=== PATIENT | male | born 1950 | race African-American/Black ===

== ENCOUNTER 2016-04-12 10:57 | Outpatient (CLI) | payer BC ==
[~2016-04-12] VITALS: Ht 160 cm; Wt 122.7 kg
--- NOTE | ~2016-04-12 | HEMODYNAMI ---
PATIENT:KAMLA GUTIERREZ JR MEDICAL RECORD: [id number] : 50 LOCATION:[facility] ADMISSION DATE: 04/12/16 Generatedon:04/12/201614:01 Patient name: KAMLA GUTIERREZ Patient #: [id number] : 1950 Date of study: 04/12/2016 Page: Of Hemodynamic Procedure Report Patient Data Patient Demographics Procedure consent was obtained First Name: KAMLA Gender: Male Last Name: BRENDA Suffix: Patient #: [id number] : 1950 Age: 65 year(s) SSN: [id number] Race: Black Additional ID: [id number] Contact details Address: [address] [place] [address] street State: [place] City: [place] Zip code: [address] Past Medical History Allergies: No known allergies Admission Admission Data Admission Date: 04/12/2016 Admission Time: 10:57 Arrival Date: 04/12/2016 Arrival Time: 0:00 Admit Source: Other Insurance Payor: Private health insurance Height (in.): 61 BSA: 2.15 (m2) Height (cm.): 154.94 BMI: 51.39 (kg/m2) Weight (lbs.): 272 Weight (kg.): 123.38 Lab Results Lab Result Date: 04/12/2016 Lab Result Time: 0:00 Biochemistry Name Units Result Min Max BUN mg/dl 15 --(--*-)-- 7 18 Creatinine mg/dl 1.1 --(--*-)-- 0.6 1.3 CBC Name Units Result Min Max Hemoglobin g/dl 13.6 --(*---)-- 13.5 17.5 Procedure Procedure Types Cath Procedure Diagnostic Procedure [facility] w/Coronaries PCI Procedure Coronary Stent Initial Procedure Description Procedure Date Procedure Date: 04/12/2016 Procedure Start Time: 13:28 Procedure End Time: 13:58 Procedure Staff Name Function Abdi Salinas MD Performing Physician Beth Gutiérrez RN Nurse Deepali Foy RT Monitor Antonio Emery RN Utility Manager Baldev Weir RT Scrub Procedure Data Cath Procedure Fluoroscopy Diagnostic fluoroscopy Total fluoroscopy Time: 8.1 time: 8.1 min min Diagnostic fluoroscopy Total fluoroscopy dose: dose: 1696 mGy 1696 mGy Contrast Material Contrast Material Type Amount (ml) Isovue 300 117 Entry Location Entry Primary Successful Side Size Upsize Upsize Entry Closure Alexandre ccessful Closure Location (Fr) 1 (Fr) 2 (Fr) Remarks Device Remarks Radial Right 6 Fr Mechanical TR band artery Short Compression Estimated blood loss: 10 ml Diagnostic catheters Device Type Used For End Catheter Placement Terumo 5Fr Rylan 110cm Procedure catheter Procedure Complications No complications Procedure Medications Medication Administration Route Dosage Oxygen NC 2 l/min Benadryl I.V. 50 mg Lidocaine 2% added to field 20 Heparin Flush Bag added to field 2 bags (1000units/500ml NS) 0.9% NaCl I.V. 100 ml/hr Versed I.V. 1 mg Fentanyl I.V. 50 mcg Radial Cocktail I.A. 1 syringe (Verapomil 2mg/Nitro 400mcg/Heparin 1500units) Versed I.V. 1 mg Fentanyl I.V. 50 mcg Heparin Bolus I.V. 61368 units Plavix P.O. 600 mg Hemodynamics Rest BSA: 2.15 (m2) HGB: 13.6 (g/dl) O2 Consumption: Estimated: 265.71 (ml/min) O2 Co nsumption indexed: Estimated:123.59 (ml/min/m) Heart Rate: 88 (bpm) Gradients Valve Time Site Site Mean SEP/DFP Peak To Heart Use 1 2 (mmHg) (sec/min) Peak Rate (mmHg) (bpm) Aortic 13:33 LV AO 80 Snapshots Pre Cath Intra NCS Post Cath Vital Signs Time Heart Resp SPO2 etCO2 HM7ddie NIBP (mmHg) Rhythm Pain Sedatio n Rate (ipm) (%) (mmHg) (mmHg) Status Level (bpm) 13:15:31 87 18 100 0 0 163/102(135) NSR 0 (11) 10(A) , No pain 13:19:49 107 23 99 0 0 163/100(128) NSR 0 (11) 10(A) , No pain 13:24:08 83 19 97 0 0 179/108(129) NSR 0 (11) 10(A) , No pain 13:28:23 93 16 94 0 0 150/103(116) NSR 0 (11) 10(A) , No pain 13:32:37 61 16 94 0 0 105/83(90) NSR 0 (11) 9(A) , No pain 13:36:35 94 15 93 0 0 127/88(114) NSR 0 (11) 9(A) , No pain 13:40:39 101 19 95 0 0 137/93(113) NSR 0 (11) 9(A) , No pain 13:44:49 83 17 100 0 0 148/91(123) NSR 0 (11) 9(A) , No pain 13:48:59 99 17 100 0 0 157/89(111) NSR 0 (11) 9(A) , No pain 13:53:15 96 17 100 0 0 162/99(123) NSR 0 (11) 10(A) , No pain 13:57:31 92 18 100 0 0 157/102(123) NSR 0 (11) 10(A) , No pain Medications Time Medication Route Dose Verified Delivered Reason Note s Effectiveness by by 13:22:33 Oxygen NC 2 l/min Abdi Buffie used for Herminio Gutiérrez RN procedure 13:22:42 Benadryl I.V. 50 mg Abdi Buffie used for Herminio Gutiérrez RN procedure 13:22:51 Lidocaine 2% added 20ml Abdi Abdi for local to vial Herminio Salinas MD anesthetic field 13:22:56 Heparin Flush added 2 bags Abdi Abdi used for Bag to Herminio Salinas MD procedure (1000units/500ml field NS) 13:23:07 0.9% NaCl I.V. 100 Abdi Buffie Per physician ml/hr Herminio Gutiérrez RN 13:27:02 Versed I.V. 1 mg Abdi Buffie for sedation Herminio Gutiérrez RN 13:27:07 Fentanyl I.V. 50 mcg Abdi Buffie for sedation Herminio Gutiérrez RN 13:30:53 Radial Cocktail I.A. 1 Abdi Abdi for (Verapomil syringe Herminio Salinas MD vasodilation 2mg/Nitro 400mcg/Heparin 1500units) 13:30:58 Versed I.V. 1 mg Abdi Susanie for sedation Herminio Gutiérrez RN 13:31:02 Fentanyl I.V. 50 mcg Abdi Beth for sedation Herminio Gutiérrez RN 13:42:45 Heparin Bolus I.V. 12,000 Abdi Susanie for veri fied units Herminio Gutiérrez RN anticoagulation with dr salinas 13:55:01 Plavix P.O. 600 mg Abdi Campos for Herminio Gutiérrez RN antiplatelet therapy Procedure Log Time Note 12:45:06 Antonio Emery RN sent for patient. Start room use. 12:55:09 Admit Source: Other 12:59:03 Diagnostic Cath status Elective 12:59:14 Time tracking: Regular hours 12:59:17 Plan of Care:Hemodynamics will remain stable., Cardiac rhythm will remain stable., Comfort level will be maintained., Respiratory function will remain adequate., Patient/ family verbilizes understanding of procedure., Procedure tolerated without complication., Recovers from procedure without complications.. 12:59:26 Patient received from Outpatients to [facility] 2 Alert and oriented. Tansferred to table in Supine position. 12:59:27 Warm blankets applied, and daisha hugger turned on for patient comfort. 12:59:27 Correct patient and procedure confirmed by team. 12:59:28 Signed procedure consent form obtained from patient. 12:59:29 ECG and BP/O2 sat monitors applied to patient. 13:14:21 Vital chart was started 13:21:00 Baseline sample Acquired. 13:21:03 Full Disclosure recording started 13:21:47 H&P Date Dictated: 03/31/2016 Within 30 days and on chart., H&P Addendum completed by physician on day of procedure. (MUST COMPLETE FOR ALL OUTPATIENTS). 13:21:50 Pre-procedure instructions explained to patient. 13:21:53 Family in waiting room. 13:21:54 Patient NPO since Midnight. 13:22:08 Patient allergic to No known allergies 13:22:16 Is the patient allergic to Iodine/contrast media? No. 13:22:20 Is patient on blood thinner?No 13:22:21 Patient diabetic? No. 13:22:26 Snore? Yes 13:22:31 Sleep apnea? No 13:22:33 Oxygen 2 l/min NC was given by Beth Gutiérrez RN; used for procedure; 13:22:33 Deviated septum? No 13:22:34 Opens mouth fully? Yes 13:22:36 Sticks out tongue? Yes 13:22:42 Benadryl 50 mg I.V. was given by Beth Gutiérrez RN; used for procedure; 13::48 IV patent on arrival in left hand with 0.9% NaCl at [facility]. 13:22:51 Lidocaine 2% 20ml vial added to field was given by Abdi Salinas MD; for local anesthetic; 13:22:56 Heparin Flush Bag (1000units/500ml NS) 2 bags added to field was given by Abdi Salinas MD; used for procedure; 13:23:07 0.9% NaCl 100 ml/hr I.V. was given by Beth Gutiérrez RN; Per physician; 13::53 Lab Result : BUN 15 mg/dl 13::53 Lab Result : Creatinine 1.1 mg/dl 13:23:53 Lab Result : Hemoglobin 13.6 g/dl 13::58 Lab results completed and on chart. 13:24:03 Right Radial & Right Groin area was prepped with chlora-prep and draped in sterile fashion 13:24:05 Alarms reviewed by R. N. 13:24:06 Sharps counted by scrub and verified by R.N. 13:24:07 Physician paged 13:24:08 Physician arrived 13:24:08 --------ALL STOP TIME OUT------ 13:24:11 Final Timeout: patient, procedure, and site verified with staff and physician. All members of the team are in agreement. 13:24:16 Right Radial & Right Groin site verified by team. 13:24:21 Physical assessment completed. ASA score P 2 - A patient with mild systemic disease as per Abdi Salinas MD. 13:24:25 Sedation plan: IV Moderate Sedation Versed, Fentanyl 13:24:32 Use device set Radial Dx 13:24:33 Acist Syringe opened to sterile field. 13:24:33 Cardinal Cath Pack opened to sterile field. 13:24:34 Bag Decanter opened to sterile field. 13:24:34 Terumo 6Fr Slender Glidesheath opened to sterile field. 13:24:35 St Rony 260cm J .035 wire opened to sterile field. 13:24:35 Acist Hand Control opened to sterile field. 13:24:36 Acist Manifold opened to sterile field. 13:24:36 IV Extension Set opened to sterile field. 13:24:37 Tegaderm 4 x 4 opened to sterile field. 13:26:09 Patient Height : 61 inches 13:26:19 Patient Weight : 272 lbs 13::21 Arrival Date: 04/12/2016 12:00:00 AM 13:26:21 Insurance Payor : Private health insurance 13:27:02 Versed 1 mg I.V. was given by Beth Gutiérrez RN; for sedation; 13:27:07 Fentanyl 50 mcg I.V. was given by Beth Gutiérrez RN; for sedation; 13:28:39 Procedure started. 13:28:44 Local anesthetic to right radial artery with Lidocaine 2% by Abdi Salinas MD.INITIAL ACCESS ONLY 13:29:29 Zero performed for pressure channel P1 13:30:53 Radial Cocktail (Verapomil 2mg/Nitro 400mcg/Heparin 1500units) 1 syringe I.A. was given by Abdi Salinas MD; for vasodilation; 13:30:58 Versed 1 mg I.V. was given by Beth Gutiérrez RN; for sedation; 13:31:02 Fentanyl 50 mcg I.V. was given by Beth Gutiérrez RN; for sedation; 13:31:10 Cook 21G 4cm Radial Needle opened to sterile field. 13:31:24 A 6 Fr Short sheath was inserted into the Right Radial artery 13:31:47 A KissMyAds 5Fr Rylan 110cm catheter was advanced over the wire and used for Procedure. 13:32:13 LV gram done using GONZALEZ 13:33:19 EF : 55 % 13:34:35 RCA angiography performed. 13:35:27 LCA angiography performed. 13:39:08 Streamix BasixCompak Inflation Kit opened to sterile field. 13:40:31 Cordis 6FR XBLAD 3.5 guide catheter opened to sterile field. 13:40:55 Thornton BMW Taconite 2 J-tip 300cm 0.014 guide wir opened to sterile field. 13:41:22 Catheter removed. 13:41:23 Proceeding to intervention. 13:41:52 6 Fr XBLAD 3.5 guide catheter was inserted over the wire 13:41:56 BMW wire advanced. 13:42:45 Heparin Bolus 12,000 units I.V. was given by Beth Gutiérrez RN; for anticoagulation; verified with dr salinas 13:42:52 Inflation number: 1 A [place] 2.0 X 20 balloon was prepped and advanced across the Mid LAD, then inflated to 12 [place] for 0:20 (min:sec). 13:43:22 Wire advanced across lesion. 13:44:36 Inflation Number: 1 A Medtronic Integrity 2.5 X 22 stent was prepped and advanced across the Dist LAD. The stent was deployed at 12 [place] for 0:20 (min:sec). 13:45:40 Balloon removed over the wire. 13:52:32 Inflation Number: 2 A Medtronic Integrity 3.0 X 18 stent was prepped and advanced across the Mid LAD. The stent was deployed at 14 [place]ST[place] for 0:20 (min:sec). 13:54:31 Terumo TR Band Large opened to sterile field. 13:55:01 Plavix 600 mg P.O. was given by Beth Gutiérrez RN; for antiplatelet therapy; 13:56:11 Sheath removed intact; hemostasis achieved with Mechanical Compression to the Right Radial artery. 13:56:15 Procedure ended.(Physican Out) 13:56:29 Fluoroscopy time 08.10 minutes. 13:56:35 Fluoroscopy dose: 1696 mGy 13:56:35 Flurop Dose total: 1696 13:56:41 Contrast amount:Isovue 300 117ml. 13:56:44 Sharps counted by scrub and verified by R.N. 13:56:51 TR band inflated with 12cc of air. 13:56:53 Insertion/operative site no bleeding no hematoma. 13:57:03 Post-op/insertion site Left Radial artery dressed using a 4 x 4 and Tegaderm. 13:57:10 Post Procedure Pulses reassessed and unchanged 13:57:14 Post-procedure physical assessment completed. ASA score P 2 - A patient with mild systemic disease as per Abdi Salinsa MD. 13:57:19 Post procedure rhythm: unchanged. 13:57:24 Estimated blood loss: 10 ml 13:57:28 Post procedure instruction explained to patient.Patient verbalizes understanding. 13:57:39 Procedure type changed to Cath procedure, Diagnostic procedure, LHC, LHC w/Coronaries, PCI procedure, Coronary Stent Initial 13:57:40 Procedure and supply charges have been captured, reviewed, submitted and are correct. 13:58:22 Procedure Complication : No complications 13:58:29 Vital chart was stopped 13:58:33 See physician's report for complete and final results. 13:58:35 Report given to [facility]. 13:58:39 Patient transfered to [facility] with Stretcher. 13:58:43 Procedure ended. 13:58:43 Full Disclosure recording stopped 13:58:46 End room use (Document Last) Intervention Summary Intervention Notes Time ActionType Lesion and Equipment Action# Pressure Duration Attributes Used 13:42:52 Inflate Mid LAD [place] 1 12 00:20 balloon Sci [place] 2.0 X 20 balloon 13:44:36 Place stent Dist LAD Medtronic 1 12 00:20 Integrity 2.5 X 22 stent 13:52:32 Place stent Mid LAD Medtronic 2 14 00:20 Integrity 3.0 X 18 stent Device Usage Item Name Manufacture Quantity Catalog Number Hospital Part Current Mini mal Lot# / Charge Number Stock Stock Serial# Code Acist Acist 1 38761 230982 431615 953541 20 Syringe Medical Systems Inc Cardinal Cardinal 1 [id number] 463769 89858 599083 5 Cath Pack Health Bag Microtek 1 2002S 891069 61920 979285 5 OneNeck [employer]. Terumo 6Fr Terumo 1 [id number] 646178 892287 050043 [address] Rony St Rony 1 614680 402974 891375 437530 30 260cm J .035 wire Acist Hand Acist 1 51849 592632 517469 703050 5 Control Medical Systems Inc Acist Acist 1 26776 704635 084246 768923 5 Manifold Medical Systems Inc IV Hospira 1 68524-37 079201 21613 216942 5 Extension Set Tegaderm 4 3M 1 1626W 230325 925610 829236 5 x 4 Cook 21G Cook Medical 1 [id number] 528141 507170 5 4cm Radial Needle Terumo 5Fr Terumo 1 69-8268 574110 034788 291180 5 Rylan 110cm catheter Merit Merit 1 [id number] 611000 508194 773653 15 Interviu Me Medical Inflation Kit Cordis 6FR Cardinal 1 [id number] 645392 272502 576831 10 XBLAD 3.5 Health guide catheter Thornton BMW Thornton 1 [id number] 718156 691478 022213 5 Taconite 2 Vascular J-tip 300cm 0.014 guide wir [place] Sci [place] 1 [id number] 154727 499973 168972 1 [id number] Amminex 2.0 X 20 balloon Medtronic Medtronic 1 [id number] 194401 206533 783139 0 [id number] Integrity 3.0 X 18 stent Medtronic Medtronic 1 [id number] 828525 025526 3 [id number] Integrity 2.5 X 22 stent Terumo TR Terumo 1 [id number] 327956 313157 40 Band Large Signature Audit [place] Stage Time Signature Unsigned Intra-Procedure 04/12/2016 Deepali Foy 2:01:41 PM RT(R) Signatures Monitor : Deepali Foy Signature : RT Date : Time : [id number] [place] [address]
[~2016-04-12 10:57] MED LIST: DICLOFENAC SODI50 MG PO; DYAZIDE 37.5/251 CAP PO; ELIQUIS2.5 MG PO; MS CONTIN15 MG PO; MULTIPLE VITAMI1 TA1 PO; PERCOCET 10/3251 TA1 PO; PRAVACHOL40 MG PO
[2016-04-12] MEDS ORDERED: DICLOFENAC SODI50 MG PO (11:36)
[2016-04-12] MEDS ORDERED: DYRENIUM50 MG PO (11:38)
[2016-04-12 11:57] VITALS: BP 149/86; Ht 160 cm; Wt 122.7 kg
[2016-04-12 12:15] LABS: BASOPHILS 0.5 % (0.0-2.0); EOSINOPHILS 2.5 % (0-7); HEMATOCRIT 42.8 % (42.0-54.0); HEMOGLOBIN 13.6 g/dL (13.5-17.5); IMMATURE GRANULOCYTES 0.1 % (0-5); LYMPHOCYTES 35.2 % (15-50); MCH 30.1 pg (26.0-34.0); MCHC 31.8 g/dL (31.0-37.0); MCV 94.7 fL (80.0-100.0); MEAN PLATELET VOLUME 10.9 fL (7.4-10.4); MONOCYTES 10.7 % (2-11); PLATELET COUNT 233 10x3/uL (130-400); RBC 4.52 10x6/uL (4.20-6.10); RDW 14.2 % (11.5-14.5); WBC 7.9 10x3/uL (4.8-10.8)
[2016-04-12 12:20] LABS: ANION GAP 13.6 mmol/L (8-16); CALCIUM 9.5 mg/dL (8.5-10.1); CARBON DIOXIDE 27.6 mmol/L (21.0-32.0); CREATININE - SERUM 1.1 mg/dL (0.6-1.3); POTASSIUM - SERUM 4.2 mmol/L (3.5-5.1)
--- NOTE | 2016-04-12 14:25 | NUR ---
RESTING IN BED QUIETLY, VSS. NO C/O NAUSEA OR CHEST PAIN. RIGHT WRIST SITE CDI. 2L NC, NO DISTRESS NOTED.
[2016-04-12] MEDS ORDERED: PLAVIX75 MG PO (14:29)
[2016-04-12] MEDS ORDERED: BAYER CHEWABLE81 MG PO (14:30)
--- NOTE | 2016-04-12 15:39 | NUR ---
REPORT CALLED TO NI IN OPS. VSS AND RIGHT WRIST TR BAND IN PLACE WITH CDI DRSG UPON TRANSFER. TRANSFERRED VIA STRETCHER TO OPS.
--- NOTE | 2016-04-12 16:32 | NUR ---
1545 TO ROOM FROM CATH RECOVERY PER BED TRBAND ON , NO BLEEDING NOTED
--- NOTE | 2016-04-12 19:56 | NUR ---
181 IV DC WITH CATHER TIP INTACT
--- NOTE | 2016-04-27 13:15 | OP ---
PATIENT NAME: KAMLA GUTIERREZ JR MEDICAL RECORD: [id number] :50 LOCATION:D.CAT ADMISSION DATE: SURGEON: MARCO DAMON M.D. DATE OF OPERATION: 04/12/2016 Catheterization Report REFERRING PHYSICIAN: Marco Palomo MD PROCEDURES PERFORMED: 1. Selective coronary angiography. 2. Left heart catheterization with ventriculogram. 3. PTCA and stent placement to the LAD. INDICATION: A 65-year-old gentleman presents with symptoms of angina. Recent stress test revealed inferior and apical ischemia. EQUIPMENT USED: Diagnostic 5-Emirati Rylan catheter. INTERVENTION: A 6-Emirati XB LAD guide, BMW guide wire, 2.0 x 20 mm Ripley balloon, 2.5 x 22 mm Integrity stent, 3.0 x 18 mm Integrity stent. TECHNIQUE: A 5-Emirati sheath was inserted in retrograde fashion in the right radial artery. Next, selective coronary angiography was performed in standard 5-Emirati Rylan catheter. Left heart catheterization was performed using a Rylan catheter as well. CORONARY ANATOMY: 1. Left main: Left main trunk is large in caliber. It gives rise to the LAD and circumflex. There is no obstruction. 2. LAD: This is a large caliber vessel extending to the apex. It has a 90% stenosis beyond the first septal ebay reseller. This was followed by a long 80% stenosis in the mid segment. At the junction of the distal and apical vessel appears to be 100% occluded, but reconstitutes through collaterals from the circumflex. 3. Circumflex: This vessel is large in caliber and dominant. It provides the large lateral branch in the proximal segment. It provides 2 posterolateral branch in the distal segment. The circumflex and its tributaries have mild irregularities, but nothing worse than 20%. 4. Right coronary artery: This vessel is small and nondominant and angiographically normal. 5. Left ventricle: Left ventricle is normal in size and function. No wall motion abnormalities are seen. Estimated ejection fraction is 60%. DESCRIPTION OF INTERVENTION: A 6-Emirati sheath was inserted in retrograde fashion in the right radial artery. Next, 100 units per kilogram of heparin was infused. A 6-Emirati XB LAD guide was advanced and engaged in the left main coronary artery. Next, a BMW guide wire was placed in the distal LAD. The proximal mid LAD were predilated with a 2.0 x 20 mm Ripley balloon at 14 atmospheres. Next, a 2.5 x 22 mm Integrity stent was placed in the mid LAD and deployed at 14 atmospheres. Next, a 3.0 x 18 mm Integrity stent was placed in the proximal LAD and deployed at 14 atmospheres. Injection revealed both stents to be widely patent with 0% residual stenosis. There is marked improvement in distal flow. At this point, the wire and guide were removed. OPERATIVE REPORT [id number] KAMLA GUTIERREZ JR IMPRESSION: Successful percutaneous transluminal coronary angioplasty and stent in the left anterior descending. TRANSINT:[id number] Voice Confirmation ID: [id number] DOCUMENT ID: [id number] MARCO DAMON M.D. at 1315 CC: [id number] DICTATION DATE: 04/12/16 1402 ENVIRONMENTAL MONITORING TECHNICIAN: 04/12/16 1413 DEP CLI 04/12/16 [id number] [place] [address]
== END 2016-04-12 18:45 | disposition home or self-care (01) ==
LOC: D.CATH 10:57
PROVIDERS: Internal Medicine Cardiovascular Disease
DX: I25.119 Atherosclerotic heart disease of native coronary artery with unspecified angina pectoris (principal)

== ENCOUNTER 2016-09-07 16:37 | Outpatient (CLI) | payer BC ==
[2016-04-12 11:57] VITALS: BMI 47.9
[~2016-09-07 16:37] MED LIST changes: +BAYER CHEWABLE81 MG PO; +DYRENIUM50 MG PO; +PLAVIX75 MG PO
== END 2016-09-07 17:24 ==
LOC: D.MAMMO 16:37
DX: N64.4 Mastodynia (principal)